=== PATIENT | male | born 1990 | race Two or more races ===

== ENCOUNTER → 2022-05-10 17:30 | Outpatient (CLI) | payer OTHER | END | disposition home or self-care (01) | LOC: LAB 17:30 | PROVIDERS: ATTEND Obstetrics & Gynecology | DX: Z20.828 Contact with and (suspected) exposure to other viral communicable diseases (principal) ==

== ENCOUNTER → 2022-05-22 17:55 | Outpatient (CLI) | payer OTHER | END | disposition home or self-care (01) | LOC: LAB 17:55 | PROVIDERS: ATTEND Obstetrics & Gynecology | DX: Z20.828 Contact with and (suspected) exposure to other viral communicable diseases (principal); Z20.818 Contact with and (suspected) exposure to other bacterial communicable diseases ==